=== PATIENT | male | born 1950 | race Caucasian/White ===

== ENCOUNTER 2017-06-20 02:12 | Emergency (ER) | payer OTHER ==
[~2017-06-20] VITALS: Ht 175.3 cm; Wt 93.4 kg
[2017-06-20] MEDS ORDERED: BENADRYL50 MG PO (06:12)
[2017-06-20] MEDS ORDERED: PEPCID20 MG PO (06:12)
[2017-06-20] MEDS ORDERED: EPIPEN ADU0.3 MG/0.3 IM (06:12)
[2017-06-20 08:47] VITALS: BP 120/75
== END 2017-06-20 08:26 | disposition home or self-care (01) ==
LOC: EME → EDBD 02:12 → EME 08:26
DX: L29.9 Pruritus, unspecified (principal); M79.89 Other specified soft tissue disorders; T50.995A Adverse effect of other drugs, medicaments and biological substances, initial encounter; Z88.6 Allergy status to analgesic agent
CPT/HCPCS: 99281; 99285; J1100; J1200; J7030; S0028